=== PATIENT | female | born 1990 | race Asian ===

== ENCOUNTER 2023-08-11 21:19 | Emergency (ER) | payer BC ==
[~2023-08-11] VITALS: Ht 160 cm; Wt 61.2 kg
[2023-08-11 21:30] VITALS: BP 123/65; PULSE 121; RESP 22; TEMP 100.5; O2SAT 96
[2023-08-11 22:15] VITALS: O2SAT 99
[2023-08-11 22:22] VITALS: BP 123/76; RESP 20
[2023-08-11 22:23] VITALS: O2SAT 99
[2023-08-11] MEDS ORDERED: DEXAMETHASONE 10 MG/ML VIAL IVP ONE (22:25)
[2023-08-11] MEDS ORDERED: KETOROLAC 30 MG/ML VIAL IVP ONE (22:25)
[2023-08-11] MEDS ORDERED: NACL 0.9% 1,000 ML IV ONE (22:25)
[2023-08-11 22:30] LABS: BASOPHILS % (AUTO) 0.3 % (0.0-2.0); EOSINOPHILS # (AUTO) 0.1 K/uL (0-0.4); EOSINOPHILS % (AUTO) 1.2 % (0.0-4.0); HEMATOCRIT 37.4 % (36-48); HEMOGLOBIN 12.7 g/dL (12.0-16.0); LYMPHOCYTES # (AUTO) 0.6 K/uL (2.5-16.5); LYMPHOCYTES % (AUTO) 5.7 % (20.5-51.1); MEAN CORPUSCULAR HEMOGLOBIN 31 pg (27-31); MEAN CORPUSCULAR HGB CONC 34 g/dL (33-37); MEAN CORPUSCULAR VOLUME 90.6 fL (80-94); MONOCYTES # (AUTO) 0.6 K/uL (0.8-1.0); MONOCYTES % (AUTO) 5.6 % (1.7-9.3); NEUTROPHILS % (AUTO) 87.2 % (42.2-75.2); PLATELET COUNT (AUTO) 169 K/uL (140-450); RED BLOOD CELL COUNT(AUTO) 4.13 MIL/uL (4.20-5.40); RED CELL DISTRIBUTION WIDTH 12.5 % (11.6-13.7); WHITE BLOOD COUNT (AUTO) 10.4 K/uL (4.8-10.8)
[2023-08-11 22:43] LABS: CALCIUM 8.7 mg/dL (8.5-10.1); CREATININE 0.8 mg/dL (0.6-1.3)
[2023-08-11 22:54] LABS: FLU A ANTIGEN negative (NEGATIVE); FLU B ANTIGEN NEGATIVE (NEGATIVE)
[2023-08-11] MEDS ORDERED: AMOXICILLIN 500 MG CAP PO ONE (23:05)
[2023-08-11] MEDS ORDERED: AMOX500C25 PO (23:07)
[2023-08-11 23:39] VITALS: PULSE 115
== END 2023-08-11 22:39 | disposition home or self-care (01) ==
LOC: MED 21:19
DX: J02.0 Streptococcal pharyngitis (principal); Z20.822 Contact with and (suspected) exposure to COVID-19; R00.0 Tachycardia, unspecified; Z79.2 Long term (current) use of antibiotics
CPT/HCPCS: 36415; 80048; 81025; 85025; 87081; 87426; 87804; 96361; 96374; 96375; 99284; J1100; J1885; J7030